=== PATIENT | male | born 1985 | race Caucasian/White ===

== ENCOUNTER 2021-09-09 18:19 | Emergency (ER) | payer OTHER ==
[~2021-09-09 18:19] MED LIST: AMMONIUM LACTA140 GM TD; AUGMENTIN 875-1 EACH PO; BENADRYL 25MG C25 MG PO; CYMBALTA 30 MG30 MG PO; ELAVIL 10 MG TA10 MG PO; ETODOLAC400 MG PO; GABAPENTIN300 MG PO; IBUPROFEN800 MG PO; LODINE CAP 300300 MG PO; NITROSTAT0.4 MG PO; NORCO 5-325 TA1 EACH PO; NORVASC10 MG PO; PREDNISONE 50 M50 MG PO; RABEPRAZOLE SOD20 MG PO; ROBAXIN-750750 MG PO; ZANTAC 150 MG150 MG PO; ZANTAC150 MG PO
[2021-09-09 19:21] LABS: HEMOGLOBIN 16.2 gm/dl (14.0-17.5); RED BLOOD COUNT 5.12 M/UL (4.20-5.50); WHITE BLOOD COUNT 9.8 K/UL (4.5-11.0)
[2021-09-09 19:43] LABS: BUN/CREATININE RATIO 17 (0-10)
== END 2021-09-09 21:21 | disposition home or self-care (01) ==
LOC: ER1 18:19
PROVIDERS: Physician Assistant
DX: R55 Syncope and collapse (principal); V49.40XA Driver injured in collision with unspecified motor vehicles in traffic accident, initial encounter; Y92.410 Unspecified street and highway as the place of occurrence of the external cause
CPT/HCPCS: 70450; 71045; 80053; 82550; 82553; 83874; 84484; 85025; 85379; 85610; 85730; 93005; 99284